=== PATIENT | female | born 1975 | race Caucasian/White ===

== ENCOUNTER 2017-06-06 20:47 | Emergency (ER) | payer OTHER ==
[2017-06-06 21:02] VITALS: PULSE 88; RESP 16; TEMP 99.4; O2SAT 98
--- NOTE | 2017-06-06 21:30 | ED PDOC ---
Upper Extremity Pain/Injury Time Seen by Provider: 06/06/17 21:07 Chief Complaint (Nursing): Upper Extremity Problem/Injury History Per: Patient History/Exam Limitations: no limitations Onset/Duration Of Symptoms: Days (5) Current Symptoms Are (Timing): Still Present Quality: "Pain" Severity: Moderate Additional Complaint(s): 42 y/o female complaining of right sided anterior shoulder pain for the last 5 days that presented after she was cleaning off her car. She denies any known injury, numbness, weakness, or other complaint. Today she tried Flexeril without relief, but it did make her tired. Past Medical History Vital Signs: Last Vital Signs Temp 99.4 F 06/06/17 21:00 Pulse 88 06/06/17 21:00 Resp 16 06/06/17 21:00 BP Pulse Ox 98 06/06/17 21:00 - Medical History PMH: Diabetes Denies: Chronic Kidney Disease - Family History Family History: States: Unknown Family Hx - Home Medications Home Medications: Ambulatory Orders Medication Instructions Recorded traMADol [Ultram] 50 mg PO TID #16 tab 11/19/14 Ibuprofen [Motrin Tab] 600 mg PO Q6 PRN #16 tab 03/22/16 Cyclobenzaprine [Cyclobenzaprine 10 mg PO Q8H PRN #12 tab 07/10/16 HCl] Ibuprofen [Motrin Tab] 800 mg PO Q6H PRN #20 tab 07/10/16 Ibuprofen [Motrin Tab] 800 mg PO Q6H PRN #20 tab 06/06/17 - Allergies Allergies/Adverse Reactions: Allergies Allergy/AdvReac Type Severity Reaction Status Date / Time No Known Allergies Allergy Verified 06/06/17 21:00 Review of Systems Constitutional: Negative for: Fever Musculoskeletal: Positive for: Shoulder Pain, Arm Pain Physical Exam - Reviewed Nursing Documentation Reviewed: Yes Vital Signs Reviewed: Yes - Physical Exam Appears: Positive for: Well, Non-toxic Head Exam: Positive for: ATRAUMATIC Skin: Positive for: Normal Color, Warm, Dry Eye Exam: Positive for: Normal appearance ENT: Positive for: Normal ENT Inspection Neck: Positive for: Normal Respiratory: Negative for: Crackles, Rales, Rhonchi, Stridor, Wheezing, Respiratory Distress Back: Positive for: Normal Inspection Extremity: Positive for: Normal ROM, Tenderness (anterior right shoulder), Capillary Refill, Other (Pain with internal rotation ). Negative for: Deformity , Swelling Neurologic/Psych: Positive for: Alert, Oriented. Negative for: Motor/Sensory Deficits - ECG O2 Sat by Pulse Oximetry: 98 Medical Decision Making Medical Decision Making: Time: 21:31 Initial impression: Right Shoulder Pain Initial plan: * XR Right Shoulder * Motrin x-ray without acute fracture or dislocation ~ Scribe Attestation: Documented by~Arely Yadav, acting as a scribe for LEANDRO Laboy. Provider Scribe Attestation: All medical record entries made by the Scribe were at my direction and personally dictated by me. I have reviewed the chart and agree that the record accurately reflects my personal performance of the history, physical exam, medical decision making, and the department course for this patient. I have also personally directed, reviewed, and agree with the discharge instructions and disposition. Disposition - Clinical Impression Clinical Impression: Tendonitis - Patient ED Disposition Is Patient to be Admitted: No Counseled Patient/Family Regarding: Diagnosis, Need For Followup, Rx Given - Disposition Disposition: Routine/Home Disposition Time: 22:27 Condition: GOOD Prescriptions: Ibuprofen [Motrin Tab] 800 mg PO Q6H PRN #20 tab PRN Reason: Pain Instructions: Tendinitis (ED) Forms: [employer] (Pashto)
--- NOTE | 2017-06-07 10:47 | RAD ---
PROCEDURE: Radiographs of the Right Shoulder HISTORY: right shoulder pain, over use COMPARISON: No prior. FINDINGS: BONES: Normal. No fracture. JOINTS: Normal. Glenohumeral and acromioclavicular joints preserved. No osteoarthritis. SOFT TISSUES: Normal. OTHER FINDINGS: None. IMPRESSION: Normal radiographs of the right shoulder.
== END 2017-06-06 22:40 | disposition home or self-care (01) ==
LOC: H.ER 20:47
DX: M75.80 Other shoulder lesions, unspecified shoulder (principal); E11.9 Type 2 diabetes mellitus without complications

== ENCOUNTER 2018-05-06 19:58 | Emergency (ER) | payer MEDICAID, OTHER ==
[2018-05-06 20:28] VITALS: BP 133/75; PULSE 68; RESP 16; TEMP 97.8; O2SAT 99
--- NOTE | 2018-05-06 21:11 | ED PDOC ---
Upper Extremity Pain/Injury Time Seen by Provider: 05/06/18 20:07 Chief Complaint (Nursing): Upper Extremity Problem/Injury Chief Complaint (Provider): Left Anterior Wrist Pain History Per: Patient History/Exam Limitations: no limitations Onset/Duration Of Symptoms: Days (x1 week), Worse Since (a couple days) Current Symptoms Are (Timing): Still Present Additional Complaint(s): 43 year old male presents to the ED for evaluation of left anterior wrist pain for the past week, worsening the last couple days. Patient notes the pain is worse in the morning, but denies taking any medications for it. Additionally denies history of similar symptoms in the past. PMD: [place] Past Medical History Reviewed: Historical Data, Nursing Documentation, Vital Signs Vital Signs: Last Vital Signs Temp 97.8 F 05/06/18 20:26 Pulse 68 05/06/18 20:26 Resp 16 05/06/18 20:26 BP 133/75 05/06/18 20:26 Pulse Ox 99 05/06/18 20:26 - Medical History PMH: Diabetes Denies: Chronic Kidney Disease - Surgical History Surgical History: No Surg Hx - Family History Family History: States: Unknown Family Hx - Social History Current smoker - smoking cessation education provided: No Alcohol: None Drugs: Denies - Home Medications Home Medications: Ambulatory Orders Medication Instructions Recorded traMADol [Ultram] 50 mg PO TID #16 tab 11/19/14 Ibuprofen [Motrin Tab] 600 mg PO Q6 PRN #16 tab 03/22/16 Cyclobenzaprine [Cyclobenzaprine 10 mg PO Q8H PRN #12 tab 07/10/16 HCl] Ibuprofen [Motrin Tab] 800 mg PO Q6H PRN #20 tab 07/10/16 Ibuprofen [Motrin Tab] 800 mg PO Q6H PRN #20 tab 06/06/17 Naproxen [Naprosyn] 500 mg PO BID PRN #20 tablet 05/06/18 - Allergies Allergies/Adverse Reactions: Allergies Allergy/AdvReac Type Severity Reaction Status Date / Time No Known Allergies Allergy Verified 06/06/17 21:00 Review of Systems ROS Statement: Except As Marked, All Systems Reviewed And Found Negative Musculoskeletal: Positive for: Other (left anterior wrist pain) Physical Exam - Reviewed Nursing Documentation Reviewed: Yes Vital Signs Reviewed: Yes - Physical Exam Appears: Positive for: No Acute Distress Head Exam: Positive for: ATRAUMATIC, NORMAL INSPECTION Skin: Positive for: Normal Color Eye Exam: Positive for: Normal appearance ENT: Positive for: Normal ENT Inspection Cardiovascular/Chest: Negative for: Bradycardia, Tachycardia Respiratory: Negative for: Accessory Muscle Use, Respiratory Distress Extremity: Positive for: Normal ROM (of left wrist), Other (positive tinel's and phalen's signs of left wrist). Negative for: Deformity (of left wrist), Swelling (of left wrist) - ECG O2 Sat by Pulse Oximetry: 99 (RA) Pulse Ox Interpretation: Normal Medical Decision Making Medical Decision Making: Time: 2104 Initial Impression: carpal tunnel of left wrist Initial Plan: --Patient stable for discharge with script for Naproxen and a temporary brace. Scribe Attestation: Documented by Cathy Durham, acting as a scribe for Maggie Vaca PA-C Provider Scribe Attestation: All medical record entries made by the Scribe were at my direction and personally dictated by me. I have reviewed the chart and agree that the record accurately reflects my personal performance of the history, physical exam, medical decision making, and the department course for this patient. I have also personally directed, reviewed, and agree with the discharge instructions and disposition. Disposition - Clinical Impression Clinical Impression: Carpal tunnel syndrome - Patient ED Disposition Is Patient to be Admitted: No Counseled Patient/Family Regarding: Diagnosis, Need For Followup, Rx Given - Disposition Disposition: Routine/Home Disposition Time: 21:09 Condition: GOOD Prescriptions: Naproxen [Naprosyn] 500 mg PO BID PRN #20 tablet PRN Reason: Pain Instructions: Carpal Tunnel Syndrome (DC), Carpal Tunnel Exercises Forms: [email or web address] (Sami)
== END 2018-05-06 21:38 | disposition home or self-care (01) ==
LOC: H.ER 19:58
DX: G56.02 Carpal tunnel syndrome, left upper limb (principal); E11.9 Type 2 diabetes mellitus without complications

== ENCOUNTER 2018-07-05 22:01 | Emergency (ER) | payer MEDICAID, OTHER ==
[2018-07-05 22:41] VITALS: BP 109/74; PULSE 80; RESP 20; TEMP 97.8; O2SAT 99
--- NOTE | 2018-07-05 23:43 | ED PDOC ---
HPI: Back Time Seen by Provider: 07/05/18 22:59 Chief Complaint (Nursing): Back Pain Chief Complaint (Provider): back pain History Per: Patient History/Exam Limitations: no limitations Onset/Duration Of Symptoms: Days (1 week), Waxing/Waning Current Symptoms Are (Timing): Still Present Exacerbating Factor(s): Turning, Movement, Sitting, Standing Additional Complaint(s): 43 y/o female presents for evaluation of right lower back pain x 1 week, worse today. Patient states pain worse with positional change, coughing, and movement. Denies fever, nausea/vomiting, chest pain, shortness of breath, dysuria, hematuria. No medications taken for relief thus far Past Medical History Reviewed: Historical Data, Nursing Documentation, Vital Signs Vital Signs: Last Vital Signs Temp 97.8 F 07/05/18 22:39 Pulse 80 07/05/18 22:39 Resp 20 07/05/18 22:39 BP 109/74 07/05/18 22:39 Pulse Ox 99 07/05/18 22:39 - Medical History PMH: Diabetes Denies: Chronic Kidney Disease - Surgical History Surgical History: No Surg Hx - Family History Family History: States: Unknown Family Hx - Home Medications Home Medications: Ambulatory Orders Medication Instructions Recorded traMADol [Ultram] 50 mg PO TID #16 tab 11/19/14 Ibuprofen [Motrin Tab] 600 mg PO Q6 PRN #16 tab 03/22/16 Cyclobenzaprine [Cyclobenzaprine 10 mg PO Q8H PRN #12 tab 07/10/16 HCl] Ibuprofen [Motrin Tab] 800 mg PO Q6H PRN #20 tab 07/10/16 Ibuprofen [Motrin Tab] 800 mg PO Q6H PRN #20 tab 06/06/17 Naproxen [Naprosyn] 500 mg PO BID PRN #20 tablet 05/06/18 Cyclobenzaprine [Cyclobenzaprine 10 mg PO BID PRN #14 tab 07/06/18 HCl] Naproxen [Naprosyn] 500 mg PO Q12 PRN #20 tablet 07/06/18 - Allergies Allergies/Adverse Reactions: Allergies Allergy/AdvReac Type Severity Reaction Status Date / Time No Known Allergies Allergy Verified 06/06/17 21:00 Review of Systems ROS Statement: Except As Marked, All Systems Reviewed And Found Negative Musculoskeletal: Positive for: Back Pain Physical Exam - Reviewed Nursing Documentation Reviewed: Yes Vital Signs Reviewed: Yes - Physical Exam Appears: Positive for: Well, Non-toxic, No Acute Distress Skin: Positive for: Normal Color Eye Exam: Positive for: Normal appearance ENT: Positive for: Normal ENT Inspection Cardiovascular/Chest: Positive for: Regular Rate, Rhythm Respiratory: Positive for: Normal Breath Sounds Gastrointestinal/Abdominal: Positive for: Normal Exam. Negative for: Tenderness Back: Positive for: Muscle Spasm (right lspine paravertebral tenderness). Negative for: L CVA Tenderness, R CVA Tenderness, Vertebral Tenderness, Decreased ROM Extremity: Positive for: Normal ROM Neurologic/Psych: Positive for: Alert, Oriented (x3) - ECG O2 Sat by Pulse Oximetry: 99 - Progress ED Course And Treament: -upreg -Toradol IM On re-eval, patient reports improvement of pain Patient educated on findings, discharged with rx Naproxen, Flexeril Advised follow up with primary doctor within 2-2 days Rest, warm compresses Return precautions given Disposition - Clinical Impression Clinical Impression: Low back pain - Patient ED Disposition Is Patient to be Admitted: No Counseled Patient/Family Regarding: Diagnosis, Need For Followup, Rx Given - Disposition Disposition: Routine/Home Disposition Time: 01:06 Condition: IMPROVED Prescriptions: Cyclobenzaprine [Cyclobenzaprine HCl] 10 mg PO BID PRN #14 tab PRN Reason: Muscle Spasm Naproxen [Naprosyn] 500 mg PO Q12 PRN #20 tablet PRN Reason: Pain, Moderate (4-7) Instructions: Low Back Pain in Adults Forms: [employer] (Mohawk)
== END 2018-07-06 01:20 | disposition home or self-care (01) ==
LOC: H.ER 22:01
DX: M54.5 Low back pain (principal)
CPT/HCPCS: 96372; 99283; J1885